=== PATIENT | male | born 1960 | race Caucasian/White ===

== ENCOUNTER 2017-06-29 19:18 | Inpatient (IN) | payer OTHER ==
[2017-06-29 20:03] VITALS: BMI 27.3
--- NOTE | 2017-06-29 23:48 | HP ---
CIWA Score - CIWA Score Nausea/Vomitin Muscle Tremors: 4-Moderate,w/Arms Extend Anxiety: 4-Mod. Anxious/Guarded Agitation: 3 Paroxysmal Sweats: 2 Orientation: 1-Uncertain about Date Tacttile Disturbances: 0-None Auditory Disturbances: 0-None Visual Disturbances: 0-None Headache: 2-Mild CIWA-Ar Total Score: 19 Admission ROS BHS - HPI Chief Complaint: Alcohol withdrawal symptoms Allergies/Adverse Reactions: Allergies Allergy/AdvReac Type Severity Reaction Status Date / Time No Known Allergies Allergy Verified 06/29/17 23:40 History of Present Illness: 56 years old male with a long history of alcohol dependence is seeking admission to detox. Patient has been in previous detox at [facility] and reports 10 years of sobriety. Patient was treated at [facility] today and referred to [facility]. He has medical history of DVT (left leg), Pulmonary embolism, hypercholesterolemia and Depression. He denies suicidal attempt and suicidal ideation at this time. - Ebola screening Have you traveled outside of the country in the last 21 days: No Have you had contact with anyone from an Ebola affected area: No Have you been sick,other than usual withdrawal symptoms: No Do you have a fever: No - Review of Systems Constitutional: Chills, Loss of Appetite, Malaise EENT: reports: Other (uses prescription glasses) Respiratory: reports: No Symptoms reported Cardiac: reports: No Symptoms Reported GI: reports: Nausea, Poor Appetite, Poor Fluid Intake, Abdominal cramping : reports: No Symptoms Reported Musculoskeletal: reports: Back Pain, Other (body aches) Integumentary: reports: Dryness, Flushing Neuro: reports: Headache, Tingling, Tremors Endocrine: reports: No Symptoms Reported Hematology: reports: Blood Clots (on coumadin) Psychiatric: reports: Anxious, Depressed Other Systems: Reviewed and Negative Patient History - Patient Medical History Hx Anemia: No Hx Asthma: No Hx Chronic Obstructive Pulmonary Disease (COPD): No Hx Cancer: No Hx Cardiac Disorders: No Hx Congestive Heart Failure: No Hx Hypertension: No Hx Hypercholesterolemia: Yes (LIPITOR) Hx Pacemaker: No HX Cerebrovascular Accident: No Hx Seizures: No Hx Diabetes: No Hx Gastrointestinal Disorders: No Hx Liver Disease: No Hx Genitourinary Disorders: No Hx Sexually Transmitted Disorders: No Hx Renal Disease (ESRD): No Hx Thyroid Disease: No Hx Human Immunodeficiency Virus (HIV): No (Never tested) Hx Hepatitis C: No Hx Depression: Yes (Lexapro) Hx Suicide Attempt: No (Denies suicidal ideation at this time) Hx Bipolar Disorder: No Hx Schizophrenia: No Other Medical History: PULMONARY EMBOLISM< DVT - Coumadin 8 mg - Patient Surgical History Past Surgical History: Yes Hx Neurologic Surgery: No Hx Cataract Extraction: No Hx Cardiac Surgery: No Hx Lung Surgery: No Hx Abdominal Surgery: No Hx Appendectomy: No Hx Cholecystectomy: No Hx Genitourinary Surgery: No Hx Orthopedic Surgery: No Other Surgical History: CYST REMOVAL FROM THE BACK 1976 Anesthesia Reaction: No - PPD History Previous Implant?: Yes Documented Results: Negative w/o proof Implanted On Prior [facility] Admission?: No PPD to be Administered?: Yes - Reproductive History Patient is a Female of Child Bearing Age (11 -55 yrs old): No (MALE) - Smoking Cessation Smoking history: Former smoker Have you smoked in the past 12 months: No Hx Chewing Tobacco Use: No Initiated information on smoking cessation: No - Substance & Tx. History Hx Alcohol Use: Yes Hx Substance Use: No Substance Use Type: None Hx Substance Use Treatment: Yes ([facility]) - Substances Abused Alcohol Route: Oral Frequency: Daily Amount used: GIN - I LITER Age of first use: 13 Date of Last Use: 06/29/17 Family Disease History - Family Disease History Family Disease History: Heart Disease: Father (HEART ATTACK 1974- ), Mother (STROKE) Admission Physical Exam S - Vital Signs Vital Signs: Vital Signs - 24 hr 06/29/17 20:01 Temperature 97.6 F Pulse Rate 96 H Respiratory 18 Rate Blood Pressure 139/89 - Physical General Appearance: Yes: Moderate Distress, Tremorous, Irritable, Sweating, Anxious HEENTM: Yes: EOMI, Normal ENT Inspection, Normal Voice, JOHN, Nasal Congestion Respiratory: Yes: Lungs Clear, Normal Breath Sounds, No Respiratory Distress Neck: Yes: Supple Breast: Yes: Breast Exam Deferred Cardiology: Yes: Regular Rhythm, Regular Rate, S1, S2 Abdominal: Yes: Normal Bowel Sounds, Soft Genitourinary: Yes: Within Normal Limits Back: Yes: Normal Inspection Musculoskeletal: Yes: Within Normal Limits Extremities: Yes: Normal Inspection Neurological: Yes: Alert, Normal Mood/Affect Integumentary: Yes: Dry Lymphatic: Yes: Within Normal Limits - Diagnostic (1) Alcohol dependence with uncomplicated withdrawal Current Visit: Yes Status: Chronic (2) DVT (deep venous thrombosis) Current Visit: Yes Status: Chronic Qualifiers: Chronicity: unspecified (3) Pulmonary embolism Current Visit: Yes Status: Chronic Qualifiers: Chronicity: unspecified (4) Depression Current Visit: Yes Status: Chronic Qualifiers: Depression Type: unspecified Qualified Code(s): F32.9 - Major depressive disorder, single episode, unspecified (5) Hypercholesterolemia Current Visit: Yes Status: Chronic BHS Breath Alcohol Content Breath Alcohol Content: 0.140 Urine Drug Screen - Results Drug Screen Negative: No Urine Drug Screen Results: BZO-Benzodiazepines
[2017-06-30] MEDS ORDERED: PNEUMOC 13-VAL CONJ-DIP CRM/PF 0.5 ML DISP.SYRIN IM ONE (02:04)
[2017-06-30] MEDS ORDERED: MAG HYDROX/AL HYDROX/SIMETH 30 ML UNIT-DOSE CUP PO PRN (02:21)
[2017-06-30] MEDS ORDERED: chlordiazePOXIDE HCL 25 MG CAPSULE PO ONE (02:21)
[2017-06-30] MEDS ORDERED: MAGNESIUM CITRATE 300 ML BOTTLE PO PRN (02:21)
[2017-06-30] MEDS ORDERED: LOPERAMIDE HCL 2 MG CAPSULE PO PRN (02:21)
[2017-06-30] MEDS ORDERED: guaiFENesin/D-METHORPHAN HB 10 ML UNIT-DOSE CUPS PO PRN (02:21)
[2017-06-30] MEDS ORDERED: NICOTINE POLACRILEX 2 MG GUM BC PRN (02:21)
[2017-06-30] MEDS ORDERED: MAGNESIUM HYDROX 2400MG/30ML ORAL SUSPENSION 30 ML CUP PO PRN (02:21)
[2017-06-30] MEDS ORDERED: P-EPHED 60MG/TRIPROLIDI 2.5MG TABLET PO PRN (02:21)
[2017-06-30] MEDS ORDERED: ACETAMINOPHEN 325 MG TABLET (FP) PO PRN (02:21)
[2017-06-30] MEDS ORDERED: MENTHOL/PHENOL 1 EACH UD MM PRN (02:21)
[2017-06-30] MEDS ORDERED: IBUPROFEN 400 MG TABLET (FP) PO PRN (02:21)
[2017-06-30] MEDS: chlordiazePOXIDE HCL 25 MG CAPSULE PO SCH ×2 (05:32→10:41)
[2017-06-30] MEDS: chlordiazePOXIDE HCL 25 MG CAPSULE PO PRN ×2 (07:46→13:01)
[2017-06-30] MEDS ORDERED: NICOTINE 14 MG/24 HOURS TOPICAL PATCH TD SCH (10:00)
[2017-06-30] MEDS ORDERED: PRENATAL VITAMINS W/ FOLIC ACID TABLET (FP) PO SCH (10:00)
[2017-06-30] MEDS ORDERED: WARFARIN NA 5 MG, WARFARIN NA 3 MG PO SCH ×2 (10:00→18:00)
[2017-06-30] MEDS ORDERED: WARFARIN NA 7.5 MG TABLET (FP) PO SCH ×2 (10:00→18:00)
[2017-06-30] MEDS ORDERED: ATORVASTATIN CA 10 MG TABLET (FP) PO SCH (10:00)
[2017-06-30 10:22] LABS: URINE APPEARANCE CLEAR; URINE BILIRUBIN NEGATIVE (<2.0 mg/dL); URINE BLOOD NEGATIVE (NEGATIVE); URINE COLOR YELLOW; URINE GLUCOSE (UA) NEGATIVE (NEGATIVE); URINE KETONE NEGATIVE (NEGATIVE); URINE LEUK ESTERASE NEGATIVE (NEGATIVE); URINE NITRITE NEGATIVE (NEGATIVE); URINE PROTEIN 2+ (NEGATIVE)
[2017-06-30 10:33] LABS: INR 1.78 (0.82-1.09); PROTHROMBIN TIME (PATIENT) 20.1 SEC (9.98-11.88)
--- NOTE | 2017-06-30 10:41 | EKG ---
Test Reason : Blood Pressure : / mmHG Vent. Rate : 083 BPM Atrial Rate : 083 BPM P-R Int : 194 ms QRS Dur : 096 ms QT Int : 388 ms P-R-T Axes : 053 018 065 degrees QTc Int : 455 ms NORMAL SINUS RHYTHM NORMAL ECG NO PREVIOUS ECGS AVAILABLE Confirmed by MD Satish, Bryant ([id number]) on 06/30/2017 10:40:59 AM Referred By: Confirmed By:Bryant Covarrubias MD
[2017-06-30 10:42] LABS: HEMATOCRIT 45.6 % (35.4-49); HEMOGLOBIN 16.1 GM/dL (11.7-16.9); MCH 32.1 pg (25.7-33.7); MCHC 35.2 g/dl (32.0-35.9); MEAN PLT VOLUME 8.7 fl (7.5-11.1); PLATELET COUNT 200 K/MM3 (134-434); RBC 5.01 M/mm3 (4.00-5.60); RDW 14.1 % (11.9-15.9); WHITE BLOOD COUNT 7.5 K/mm3 (4.0-10.0)
[2017-06-30 10:52] LABS: ALBUMIN 4.2 g/dl (3.4-5.0); ANION GAP 10 (8-16); BLOOD UREA NITROGEN 16 mg/dL (7-18); CALCIUM 8.7 mg/dL (8.5-10.1); CHLORIDE 103 mmol/L (98-107); CO2 26 mmol/L (21-32); GLUCOSE,RANDOM 109 mg/dL (74-106); POTASSIUM 3.7 mmol/L (3.5-5.1); SODIUM 139 mmol/L (136-145)
[2017-06-30 10:52] LABS: URINE MUCUS RARE
[2017-06-30 10:56] LABS: ALK PHOS 64 U/L (45-117); BILIRUBIN,TOTAL 1.1 mg/dL (0.2-1.0); CREATININE 0.7 mg/dL (0.7-1.3); SGOT/AST 24 U/L (15-37); SGPT/ALT 30 U/L (12-78); TOT PROT 7.1 g/dl (6.4-8.2)
--- NOTE | 2017-06-30 11:33 | PN ---
S CIWA - CIWA Score Nausea/Vomitin Muscle Tremors: 3 Anxiety: 3 Agitation: 3 Paroxysmal Sweats: 1-Minimal Palms Moist Orientation: 0-Oriented Tacttile Disturbances: 1-Very Mild Itch/Numbness Auditory Disturbances: 1-Very Mild Visual Disturbances: 0-None Headache: 2-Mild CIWA-Ar Total Score: 17 BHS Progress Note (SOAP) Subjective: ALERT,IRRITABLE,ANXIOUS,INTERRUPTED SLEEP,TREMOR Objective: 06/30/17 11:31 Vital Signs Temperature 97.7 F 06/30/17 10:40 Pulse Rate 85 06/30/17 10:40 Respiratory Rate 20 06/30/17 10:40 Blood Pressure 135/77 06/30/17 10:40 O2 Sat by Pulse Oximetry (%) EKG NSR,NORMAL ECG Laboratory Last Values WBC 7.5 K/mm3 (4.0-10.0) 06/30/17 07:00 RBC 5.01 M/mm3 (4.00-5.60) 06/30/17 07:00 Hgb 16.1 GM/dL (11.7-16.9) 06/30/17 07:00 Hct 45.6 % (35.4-49) 06/30/17 07:00 MCV 91.0 fl (80-96) 06/30/17 07:00 MCH 32.1 pg (25.7-33.7) 06/30/17 07:00 MCHC 35.2 g/dl (32.0-35.9) 06/30/17 07:00 RDW 14.1 % (11.9-15.9) 06/30/17 07:00 Plt Count 200 K/MM3 (134-434) 06/30/17 07:00 MPV 8.7 fl (7.5-11.1) 06/30/17 07:00 PT with INR 20.10 SEC (9.98-11.88) H 06/30/17 06:00 INR 1.78 (0.82-1.09) H 06/30/17 06:00 Sodium 139 mmol/L (136-145) 06/30/17 07:00 Potassium 3.7 mmol/L (3.5-5.1) 06/30/17 07:00 Chloride 103 mmol/L (98-107) 06/30/17 07:00 Carbon Dioxide 26 mmol/L (21-32) 06/30/17 07:00 Anion Gap 10 (8-16) 06/30/17 07:00 BUN 16 mg/dL (7-18) 06/30/17 07:00 Creatinine 0.7 mg/dL (0.7-1.3) 06/30/17 07:00 Creat Clearance w eGFR > 60 (>60) 06/30/17 07:00 Random Glucose 109 mg/dL (74-106) H 06/30/17 07:00 Calcium 8.7 mg/dL (8.5-10.1) 06/30/17 07:00 Total Bilirubin 1.1 mg/dL (0.2-1.0) H 06/30/17 07:00 AST 24 U/L (15-37) 06/30/17 07:00 ALT 30 U/L (12-78) 06/30/17 07:00 Alkaline Phosphatase 64 U/L (45-117) 06/30/17 07:00 Total Protein 7.1 g/dl (6.4-8.2) 06/30/17 07:00 Albumin 4.2 g/dl (3.4-5.0) 06/30/17 07:00 Urine Color Yellow 06/30/17 08:15 Urine Appearance Clear 06/30/17 08:15 Urine pH 9.0 (5.0-8.0) H 06/30/17 08:15 Ur Specific [place] 1.028 (1.001-1.035) 06/30/17 08:15 Urine Protein 2+ (NEGATIVE) H 06/30/17 08:15 Urine Glucose (UA) Negative (NEGATIVE) 06/30/17 08:15 Urine Ketones Negative (NEGATIVE) 06/30/17 08:15 Urine Blood Negative (NEGATIVE) 06/30/17 08:15 Urine Nitrite Negative (NEGATIVE) 06/30/17 08:15 Urine Bilirubin Negative (<2.0 mg/dL) 06/30/17 08:15 Urine Urobilinogen 2.0 mg/dL (0.2-1.0) 06/30/17 08:15 Ur Leukocyte Esterase Negative (NEGATIVE) 06/30/17 08:15 Urine WBC (Auto) <1 /hpf (3-5) 06/30/17 08:15 Urine RBC (Auto) 17 /hpf (0-3) 06/30/17 08:15 Urine Mucus Rare 06/30/17 08:15 Assessment: 06/30/17 11:32 WITHDRAWAL SYMPTOM Plan: CONTINUE DETOX,ON COUMADIN 8 MGS PO DAILY
[2017-06-30] MEDS ORDERED: PNEUMOCOCCAL 23 VACCINE 0.5 ML VIAL IM ONE (12:00)
[2017-06-30 14:09] VITALS: BP 144/89; PULSE 91; TEMP 98.1
[2017-06-30] MEDS ORDERED: ESCITALOPRAM OXALATE 20 MG TABLET (FP) PO SCH (14:15)
--- NOTE | 2017-06-30 14:22 | CONSULT ---
[facility] Psychiatric Consult - Data Date of interview: 06/30/17 Admission source: [facility] Identifying data: Pt. is a 56 year old man, without kids, employed, and living with . This is patient's first admission to [facility]. Pt. admitted to for alcohol dependence. Substance Abuse History: Following information confirmed with Mr. Wilson: Smoking Cessation. Smoking history: Former smoker. Have you smoked in the past 12 months: No. Hx Chewing Tobacco Use: No. Initiated information on smoking cessation: No. - Substance & Tx. History. Hx Alcohol Use: Yes. Hx Substance Use: No. Substance Use Type: None. Hx Substance Use Treatment: Yes ( [facility]). - Substances Abused. Alcohol. Route: Oral. Frequency: Daily. Amount used: GIN - I LITER. Age of first use: 13. Date of Last Use: 06/29/17 Medical History: DVT (left leg), Pulmonary embolism, hypercholesterolemia Psychiatric History: Pt. reports one psychiatric hospitalization at [facility] approximately ten years ago for depression. Outpatient care is provided by Dr. Hunt. Pt. reports a diagnosis of anxiety and depression and is prescribed lexapro 20mg PO daily. Pt. denies h/o suicide attempt. Pt. currently denies suicidal and homicidal ideation. Physical/Sexual Abuse/Trauma History: Denies. Mental Status Exam - Mental Status Exam Alert and Oriented to: Time, Place, Person Cognitive Function: Good Patient Appearance: Unkempt Mood: Hopeful, Euthymic Affect: Appropriate Patient Behavior: Appropriate, Cooperative Speech Pattern: Appropriate Voice Loudness: Normal Thought Process: Goal Oriented Thought Disorder: Not Present Hallucinations: Denies Suicidal Ideation: Denies Homicidal Ideation: Denies Insight/Judgement: Poor Sleep: Fair Appetite: Fair Muscle strength/Tone: Normal Gait/Station: Normal Psychiatric Findings - Problem List ([place] 1, 2,3) (1) Alcohol dependence with uncomplicated withdrawal Status: Chronic (2) Anxiety disorder Status: Chronic - Initial Treatment Plan Initial Treatment Plan: Psychoeducation provided. Detoxification provided. Lexapro 20mg PO daily ordered. Benefits and side effects discussed. Verbal consent given. Will continue to monitor.
--- NOTE | 2017-06-30 15:41 | PN ---
[facility] Progress Note Note: PATIENT DID NOT WANT TO COMPLETE TREATMENT,ALL ATTEMPTS TO CONVINCE PATIENT TO STAY BY NURSES AND COUNSELOR WITH NO AVAIL,DID NOT WANT TO WAIT,SIGNED RELEASE AMA
--- NOTE | 2017-06-30 15:46 | DS ---
[facility] Detox Discharge Summary Admission Date: 06/29/17 Discharge Date: 06/30/17 - History Present History: Alcohol Dependence Additional Comments: PATIENT DID NOT WANT TO COMPLETE TREATMENT,SIGNED RELEASE AMA,DID NIT WANT TO WAIT Pertinent Past History: DVT LEFT LEFT HISTORY OF PULMONARY EMBOLISM HYPERCHOLESTEOLEMIA - Physical Exam Results Vital Signs: Vital Signs Temperature 98.1 F 06/30/17 14:08 Pulse Rate 91 H 06/30/17 14:08 Respiratory Rate 18 06/30/17 14:08 Blood Pressure 144/89 06/30/17 14:08 O2 Sat by Pulse Oximetry (%) Pertinent Admission Physical Exam Findings: WITHDRAWAL SIGNS AND SYMPTOM - Medication Discharge Medications: Ambulatory Orders Atorvastatin Calcium [Lipitor] 5 mg PO DAILY 06/30/17 Escitalopram Oxalate [Lexapro -] 30 mg PO DAILY 06/30/17 Warfarin Na [Coumadin] 8 mg PO DAILY 06/30/17 - Diagnosis (1) Alcohol dependence with uncomplicated withdrawal Current Visit: Yes Status: Chronic (2) DVT (deep venous thrombosis) Current Visit: Yes Status: Chronic Qualifiers: Chronicity: unspecified (3) Hypercholesterolemia Current Visit: Yes Status: Chronic (4) Pulmonary embolism Current Visit: Yes Status: Chronic Qualifiers: Chronicity: unspecified - AMA Did Patient Leave Against Medical Advice: Yes
[2017-06-30] MEDS ORDERED: MELATONIN 5 MG TABLETS PO PRN (22:00)
[2017-06-30] MEDS ORDERED: THIAMINE HCL 100 MG TABLET (FP) PO SCH (22:00)
[2017-07-01] MEDS ORDERED: chlordiazePOXIDE HCL 25 MG CAPSULE PO SCH (05:00)
[2017-07-02] MEDS ORDERED: chlordiazePOXIDE 5 MG CAPSULE PO SCH (05:00)
[2017-07-03] MEDS ORDERED: chlordiazePOXIDE HCL 10 MG CAPSULE PO SCH (05:00)
== END 2017-06-30 15:31 | disposition home or self-care (01) | DRG 897 ==
LOC: YASAS 19:18 → Y6N 23:14
PROVIDERS: ADMIT Internal Medicine; ATTEND Internal Medicine
PROC: HZ2ZZZZ Detoxification Services for Substance Abuse Treatment (ICD-10-PCS; principal; 2017-06-29)
DX: F10.230 Alcohol dependence with withdrawal, uncomplicated (principal); I82.409 Acute embolism and thrombosis of unspecified deep veins of unspecified lower extremity; E78.00 Pure hypercholesterolemia, unspecified; F41.9 Anxiety disorder, unspecified; Z86.711 Personal history of pulmonary embolism; Z79.01 Long term (current) use of anticoagulants
CPT/HCPCS: 36415; 80053; 81003; 81015; 85027; 85610; 86593; 90732; 93005; 93010; G0009